=== PATIENT | female | born 1965 ===

== ENCOUNTER 2024-10-10 08:15 | Inpatient (IN) | payer OTHER ==
[~2024-10-10] VITALS: Ht 121.9 cm; Wt 79.8 kg
[2024-10-10 10:20] LABS: HEMATOCRIT 40.5 % (36.0-45.00); HEMOGLOBIN 13.7 g/dL (12.0-15.00); MEAN CORPUSCULAR HEMOGLOBIN 27.7 pg (27.00-32.0); MEAN CORPUSCULAR HGB CONC 33.8 g/dl (32.0-36.0); PLATELET COUNT 349 K/uL (150-450); RED BLOOD COUNT 4.94 M/uL (4.00-6.00); RED CELL DISTRIBUTION WIDTH 15.6 % (11.5-14.5)
[2024-10-10 10:33] LABS: PH,URINE 5.5 (5.0-8.0); URINE APPEARANCE Clear; URINE BILIRRUBIN Negative (NEGATIVE); URINE BLOOD Trace; URINE COLOR Yellow; URINE GLUCOSE Negative (NEGATIVE); URINE KETONE Negative (NEGATIVE); URINE LEUKOCYTE Trace; URINE NITRATE Negative; URINE PROTEIN Negative (NEGATIVE)
[2024-10-10 10:38] LABS: URINE BACTERIA 51.4 uL (0.0-1933); URINE EPITHELIAL CELLS 16.7 uL (0.0-38.8); URINE RBC 25.1 uL (0.0-20.8); URINE WBC 13.7 uL (0.0-23.2)
[2024-10-10 10:47] LABS: INR 0.97; PARTIAL THROMBOPLASTIN TIME 27.9 SECONDS (22.0-34.0); PROTHROMBIN TIME 10.6 SECONDS (9.0-11.5)
[2024-10-10 11:14] LABS: URINE CAST 0.73 uL (0.0-1.40)
[2024-10-10 11:16] LABS: ALBUMIN 3.7 gm/dL (3.4-5.0); BILIRUBIN TOTAL 0.48 mg/dL (0.3-1.2); CALCIUM 9.4 mg/dL (8.5-10.1); CREATININE SERUM 0.53 mg/dL (0.55-1.02); GFR 117.27; GLOBULINA 3.5 G/DL (2.4-3.5); POTASSIUM 4.91 mEq/L (3.5-5.1); TOTAL PROTEIN 7.2 gm/dL (6.4-8.2)
[2024-10-10] MEDS ORDERED: SYNTHROID100 MCG PO (11:45)
[2024-10-10 11:46] LABS: RH POSITIVE
[2024-10-10] MEDS ORDERED: COZAAR50 MG PO (11:46)
[2024-10-20 13:58] VITALS: BP 132/81
[2024-10-24] MEDS ORDERED: KETOROLAC TROMETHAMINE 60 MG VIAL IM ONE (07:45)
[2024-10-24] MEDS ORDERED: ISOPROPYL ALCOHOL 30 ML OUNCE TOP ONE (07:45)
[2024-10-24] MEDS ORDERED: LIDOCAINE HCL 1%/EPINEPHRINE 20ML VIAL IJ ONE (07:45)
[2024-10-24] MEDS ORDERED: CEFAZOLIN SODIUM 1,000 MG VIAL IV ONE (07:45)
[2024-10-24] MEDS ORDERED: MORPHINE SULFATE 4 MG/ML VIAL IV ONE (07:45)
[2024-10-24] MEDS ORDERED: BUPIVACAINE HCL/PF 0.25% 30ML VIAL InF ONE (07:45)
[2024-10-24] MEDS ORDERED: TRANEXAMIC ACID 100MG/1ML (1000MG) AMPUL IV ONE ×2 (07:45)
[2024-10-24] MEDS ORDERED: ONDANSETRON HCL 2 MG/ML VIAL IV PRN (09:15)
[2024-10-24] MEDS ORDERED: SODIUM CHLORIDE 0.45 % 1,000 ML IV SCH (09:15)
[2024-10-24] MEDS ORDERED: OxyCODONE HCL 5 MG TABLET (ROXICODONE) PO PRN (09:15)
[2024-10-24] MEDS ORDERED: MORPHINE SULFATE 4 MG/ML CARTRIDGE IV PRN (09:15)
[2024-10-24 12:00] VITALS: BP 124/65; O2SAT 98
[2024-10-24] MEDS ORDERED: ACETAMINOPHEN 500 MG GEL..CAP PO SCH (12:00)
[2024-10-24] MEDS ORDERED: CEFAZOLIN SODIUM 1,000 MG VIAL IV SCH (17:00)
[2024-10-24] MEDS ORDERED: GABAPENTIN 300 MG CAPSULE PO SCH (17:00)
[2024-10-24 19:10] VITALS: BP 111/72; O2SAT 98
[2024-10-25 00:06] VITALS: BP 110/60; O2SAT 100
[2024-10-25] MEDS ORDERED: LEVOTHYROXINE SODIUM 100 MCG TABLET PO SCH (06:00)
[2024-10-25 06:25] LABS: HEMATOCRIT 35.2 % (36.0-45.00); MEAN CORPUSCULAR HGB CONC 34.1 g/dl (32.0-36.0); PLATELET COUNT 272 K/uL (150-450)
[2024-10-25] MEDS ORDERED: PERCOCET 5-3251 EACH PO (08:05)
[2024-10-25] MEDS ORDERED: ELIQUIS2.5 MG PO (08:05)
[2024-10-25] MEDS ORDERED: CEFADROXIL500 MG PO (08:05)
[2024-10-25] MEDS ORDERED: APIXABAN 2.5 MG TABLET PO SCH (09:00)
[2024-10-25] MEDS ORDERED: SENNOSIDES 1 TAB TABLET PO SCH (09:00)
[2024-10-25] MEDS ORDERED: LOSARTAN POTASSIUM 50 MG TABLET PO SCH (09:00)
[2024-10-25 10:00] VITALS: BP 123/56; O2SAT 97
[2024-10-25] MEDS ORDERED: IRON FUM,PS/FOLIC ACID/VITC/B3 1 CAP CAPSULE PO NR (13:00)
[2024-10-25] MEDS ORDERED: Cyanocobalamin/Mecobalamin 1 TAB.SL SL NR (13:00)
[2024-10-25 16:00] VITALS: BP 108/60; O2SAT 94
[2024-10-25] MEDS ORDERED: VITAMIN B COMPLEX 1 EACH PO SCH (17:00)
[2024-10-26 00:14] VITALS: BP 94/55; O2SAT 95
[2024-10-26 08:00] VITALS: BP 106/66; O2SAT 97
[2024-10-26] MEDS ORDERED: Cyanocobalamin/Mecobalamin 1 TAB.SL SL SCH (09:00)
[2024-10-26] MEDS ORDERED: IRON FUM,PS/FOLIC ACID/VITC/B3 1 CAP CAPSULE PO SCH (09:00)
[2024-10-26 10:42] LABS: HEMATOCRIT 32.7 % (36.0-45.00); HEMOGLOBIN 11.2 g/dL (12.0-15.00); MEAN CELL VOLUME 81.8 fL (80.00-100.00); MEAN CORPUSCULAR HEMOGLOBIN 28.1 pg (27.00-32.0); MEAN CORPUSCULAR HGB CONC 34.4 g/dl (32.0-36.0); PLATELET COUNT 261 K/uL (150-450); RED CELL DISTRIBUTION WIDTH 14.9 % (11.5-14.5)
[2024-10-26 16:00] VITALS: BP 100/58; O2SAT 98
== END 2024-10-26 17:34 | DRG 470 ==
LOC: SURG 10-24 05:38 → O/R 10-24 05:38 → SURH 10-24 08:15 → SURG 10-24 10:39 → SURH 10-24 14:00 → SURG 10-26 17:34
PROVIDERS: ADMIT Orthopaedic Surgery; ATTEND Orthopaedic Surgery
PROC: 0SUC07Z Supplement Right Knee Joint with Autologous Tissue Substitute, Open Approach (ICD-10-PCS; 2024-10-24)
PROC: 0SRC0J9 Replacement of Right Knee Joint with Synthetic Substitute, Cemented, Open Approach (ICD-10-PCS; principal; 2024-10-24 14:00)
DX: M17.11 Unilateral primary osteoarthritis, right knee (principal); D62 Acute posthemorrhagic anemia; S83.011A Lateral subluxation of right patella, initial encounter; M85.461 Solitary bone cyst, right tibia and fibula; I10 Essential (primary) hypertension; E03.9 Hypothyroidism, unspecified